=== PATIENT | female | born 1995 | race Caucasian/White ===

== ENCOUNTER → 2016-05-14 | Outpatient (REF) | LOC: WSOH 09:01 | DX: Z02.89 Encounter for other administrative examinations (principal) ==

== ENCOUNTER 2017-09-12 08:18 | Observation (INO) | payer BC ==
[2017-09-12] VITALS (7 sets, daily range): BP systolic 118–129; BP diastolic 61–77; PULSE 56–72; TEMP 98.2
[~2017-09-12] VITALS: Ht 175.3 cm; Wt 67.3 kg
[2017-09-12 08:43] LABS: COLLECTION METHOD CLEAN CATCH
[2017-09-12 08:52] LABS: BASO % 0.3 % (0.0-2.0); EOS % 0.1 % (0-4.0); GRAN # 12.3 (1.4-6.5); HEMATOCRIT 40.8 % (37.0-47.0); LYMPH # 1.4 (1.2-3.4); LYMPH % 9.8 % (20.0-51.0); MEAN CELL VOLUME 86 fl (80.0-100.0); MEAN CORPUSCULAR HEMOGLOBIN 32 pg (27.0-31.0); MEAN CORPUSCULAR HGB CONC 37 g/dl (33.0-37.0); MEAN PLATELET VOLUME 9.9 fl (7.4-10.4); MONO # 0.8 (0.1-0.6); MONO % 5.5 % (1.7-9.3); PLATELET COUNT 264 K/mm3 (130-400); RED BLOOD COUNT 4.76 M/mm3 (4.10-5.30); REDCELL DISTRIBUTION WIDTH-CV 11.7 % (11.5-14.5)
[2017-09-12 08:56] LABS: PH 9 (5-8); URINE APPEARANCE Clear; URINE BACTERIA None Seen /hpf; URINE BILIRUBIN Negative (NEGATIVE); URINE BLOOD 1+ (NEGATIVE); URINE COLOR Yellow; URINE GLUCOSE Negative (NEGATIVE); URINE KETONE Trace (NEGATIVE); URINE LEUKOCYTE ESTERASE Trace (NEGATIVE); URINE NITRATE Negative (NEGATIVE); URINE PROTEIN(semi-quant) 1+ (NEGATIVE); URINE UROBILINOGEN Negative (NEGATIVE)
[2017-09-12 09:04] LABS: ALBUMIN 4.7 gm/dL (3.5-5.0); BILIRUBIN,TOTAL 1.1 mg/dL (0.0-1.0); CALCIUM 9.9 mg/dL (8.4-10.2); CREATININE, serum 0.72 mg/dL (0.52-1.25); POTASSIUM 3.6 mmol/L (3.4-5.0); TOTAL PROTEIN 9.4 gm/dL (6.4-8.2)
[2017-09-12] MEDS ORDERED: NORCO 325 MG-51 TAB PO (16:03)
== END 2017-09-12 16:40 | disposition home or self-care (01) ==
LOC: COL.ER 08:18 → SURG 10:31
PROVIDERS: Physician Assistant
DX: K35.3 Acute appendicitis with localized peritonitis (principal)
CPT/HCPCS: J0694; J1100; J1170; J1885; J2405; J2704; J3010; J7030; Q9967

== ENCOUNTER 2021-02-27 08:40 | Emergency (ER) | payer BC ==
[~2021-02-27] VITALS: Ht 175.3 cm; Wt 72.7 kg
[~2021-02-27 08:40] MED LIST: NORCO 325 MG-51 TAB PO
[2021-02-27 08:46] VITALS: TEMP 98.4
[2021-02-27 09:14] LABS: BASO % 0.5 % (0.0-2.0); EOS # 0.1 K/mm3 (0.0-0.7); EOS % 1.6 % (0-4.0); GRAN # 3.9 K/mm3 (1.4-6.5); GRAN % 63.6 % (42.2-75.2); HEMATOCRIT 37.3 % (37.0-47.0); HEMOGLOBIN 13.5 g/dl (12.5-16.0); LYMPH # 1.7 K/mm3 (1.2-3.4); LYMPH % 27.3 % (20.0-51.0); MEAN CELL VOLUME 86 fl (80.0-100.0); MEAN CORPUSCULAR HEMOGLOBIN 31 pg (27.0-31.0); MEAN CORPUSCULAR HGB CONC 36 g/dl (33.0-37.0); MONO # 0.4 K/mm3 (0.1-0.6); MONO % 6.8 % (1.7-9.3); PLATELET COUNT 256 K/mm3 (130-400); RED BLOOD COUNT 4.32 M/mm3 (4.10-5.30); REDCELL DISTRIBUTION WIDTH-CV 11.5 % (11.5-14.5)
[2021-02-27 13:12] VITALS: BP 130/75; PULSE 76
== END 2021-02-27 13:20 | disposition home or self-care (01) ==
LOC: COL.ER 08:40
PROVIDERS: Personal Emergency Response Attendant
DX: O20.0 Threatened abortion (principal); Z3A.01 Less than 8 weeks gestation of pregnancy
CPT/HCPCS: J2791

== ENCOUNTER 2021-03-10 20:02 | Emergency (ER) | payer BC ==
[~2021-03-10] VITALS: Ht 175.3 cm; Wt 72.7 kg
[2021-03-10 20:05] VITALS: BP 130/84; TEMP 97.8
[2021-03-10 20:34] VITALS: PULSE 61
== END 2021-03-10 20:36 | disposition home or self-care (01) ==
LOC: COL.ER 20:02
DX: M25.561 Pain in right knee (principal)

== ENCOUNTER 2021-04-21 08:26 | Emergency (ER) | payer BC ==
[~2021-04-21] VITALS: Ht 175.3 cm; Wt 72.7 kg
[2021-04-21 08:33] VITALS: TEMP 98.6
[2021-04-21 08:59] LABS: BASO % 0.4 % (0.0-2.0); EOS # 0.3 K/mm3 (0.0-0.7); EOS % 3.5 % (0.0-4.0); GRAN # 4.3 K/mm3 (1.4-6.5); GRAN % 60.4 % (42.2-75.2); HEMOGLOBIN 14.4 g/dl (12.5-16.0); LYMPH % 28.6 % (20.0-51.0); MEAN CELL VOLUME 86 fl (80.0-100.0); MEAN CORPUSCULAR HEMOGLOBIN 31 pg (27-31); MEAN CORPUSCULAR HGB CONC 36 g/dl (33.0-37.0); MONO # 0.5 K/mm3 (0.1-0.6); PLATELET COUNT 261 K/mm3 (130-400); RED BLOOD COUNT 4.64 M/mm3 (4.10-5.30); REDCELL DISTRIBUTION WIDTH-CV 11.5 % (11.5-14.5)
[2021-04-21 09:23] LABS: ALANINE AMINOTRANSFERASE 13 U/L (0-55); ALBUMIN 4.4 gm/dL (3.5-5.0); ALKALINE PHOSPHATASE 64 U/L (40-150); ANION GAP 10 mmol/L (7-16); AST,SGOT 19 U/L (5-34); BILIRUBIN,TOTAL 0.5 mg/dL (0.2-1.2); BLOOD UREA NITROGEN 12 mg/dL (7-19); CALCIUM 8.9 mg/dL (8.4-10.2); CARBON DIOXIDE 25 mmol/L (22-29); CHLORIDE 106 mmol/L (98-107); CREATININE, serum 0.86 mg/dL (0.57-1.11); GLUCOSE 73 mg/dL (70-99); POTASSIUM 3.8 mmol/L (3.5-4.5); SODIUM 141 mmol/L (136-145); TOTAL PROTEIN 7.5 gm/dL (6.2-8.1)
[2021-04-21 09:31] LABS: TROPONIN-I < 0.010 ng/mL (0.00-0.033)
[2021-04-21 09:33] LABS: COLLECTION METHOD CLEAN CATCH
[2021-04-21 09:38] LABS: PH 6 (5-8); SQUAMOUS EPITHELIAL 0-2 /hpf (0-10); URINE APPEARANCE Clear (CLEAR/HAZY); URINE BACTERIA None Seen /hpf (NONE SEEN); URINE BILIRUBIN Negative (NEGATIVE); URINE BLOOD Negative (NEGATIVE); URINE COLOR Straw (YELLOW); URINE GLUCOSE Negative (NEGATIVE); URINE KETONE Negative (NEGATIVE); URINE LEUKOCYTE ESTERASE Negative (NEGATIVE); URINE NITRATE Negative (NEGATIVE); URINE PROTEIN(semi-quant) Negative (NEGATIVE); URINE RBC 0-2 /hpf (0-2); URINE UROBILINOGEN Negative (NEGATIVE)
[2021-04-21] MEDS ORDERED: PEPCID 20MG TAB20 MG PO (09:58)
[2021-04-21 10:13] VITALS: BP 124/67; PULSE 64
== END 2021-04-21 10:18 | disposition home or self-care (01) ==
LOC: COL.ER 08:26
PROVIDERS: Emergency Medicine
DX: R07.89 Other chest pain (principal); Z20.822 Contact with and (suspected) exposure to COVID-19